=== PATIENT | female | born 1985 | race Hispanic/Latino ===

== ENCOUNTER 2016-06-09 04:31 | Inpatient (IN) | payer OTHER ==
[~2016-06-09] VITALS: Ht 160 cm; Wt 92.1 kg
[~2016-06-09 04:31] MED LIST: MOTRIN 800MG T800 MG PO; PERCOCET 325 MG1 TA2 PO
[2016-06-09 07:46] LABS: ABSOLUTE BASOPHIL COUNT 0 /CUMM (0.0-0.2); ABSOLUTE EOSINOPHIL COUNT 0 /CUMM (0.0-0.7); ABSOLUTE GRANULOCYTE CT 11.1 /CUMM (1.4-6.5); ABSOLUTE LYMPH COUNT 1.2 /CUMM (1.2-3.4); ABSOLUTE MONOCYTE COUNT 0.7 /CUMM (0.10-0.60); BASOPHIL % 0.1 % (0.0-2.0); EOSINOPHIL % 0.1 % (0-5); GRANULOCYTE % 85.5 % (42.2-75.2); HEMATOCRIT 35.4 % (37-47); MEAN CORPUSCULAR HGB 27.5 PG (27.0-31.0); MEAN CORPUSCULAR HGB CONC 33.3 G/DL (33.0-37.0); MEAN CORPUSCULAR VOLUME 82.4 FL (81.0-99.0); MEAN PLATELET VOLUME 10.5 FL (7.4-10.4); PLATELET COUNT 173 /CUMM (130-400); RBC DISTRIBUTION WIDTH 15.5 % (11.5-14.5); RED BLOOD CELL CT 4.29 /CUMM (4.20-5.40); WHITE BLOOD CELL COUNT 12.9 /CUMM (4.8-10.8)
[2016-06-09 08:20] VITALS: BP 118/67
--- NOTE | 2016-06-09 10:34 | History & Physical ---
General Information and HPI MD Statement: I have seen and personally examined ZAYRA UREÑA and documented this H&P. The patient is a 31 year old female at 38 weeks weeks [] weeks and [] days gestation who presented with a chief complaint of []. History of Present Illness: 31-year-old 2 para 1001 presents to childbirth center at 38 weeks gestation complaining of ruptured membranes and labor. Patient I is seen childbirth section tractor to 3 minutes she is given hydration on she is given Brethine contracts well through patient has clearly copious amounts of fluid from the vagina consistent with spontaneous rupture membranes plan is made for section Allergies/Medications Allergies: Coded Allergies: NO KNOWN ALLERGIES (04/29/15) Home Med list OXYCODONE HCL/ACETAMINOPHEN (Percocet 5-325 MG Tablet) 325 MG/5 MG TAB 1 TAB PO Q4P PRN PAIN SCALE 7-8 Yibuprofen (Motrin 800MG Tab) 800 MG TAB 800 MG PO Q6P PRN PAIN SCALE 4-6 Past History reducer History : 3 Para: 0 Last Menstrual Period: 07/26/2014 Past reducer History: none (2TOP) Surgical History Pertinent Surgical History: N Past Family/Social History Psychosocial History Smoking Status: Never Smoked Review of Systems Review of Systems: Negative is stated in the HPI Exam & Diagnostic Data Last 24 Hrs of Vital Signs/I&O Vital Signs Date Time Temp Pulse Resp B/P Pulse O2 O2 Flow FiO2 Ox Delivery Rate 06/09 0820 118/67 Intake & Output 06/09 1600 06/09 0800 06/09 0000 Intake Total Output Total Balance Patient 203 lb Weight Obstetric Exam Wgt Gained During : 12 Pelvimetry: Untested Dilation (cm): 2 Effacement (%): 90 Station: 0 Membranes: SROM Fluid: clear Fundal Height (cm): 38 Multiple Gestation? No Contractions: Every 3 minutes Patient for Induction? No Labs Blood Type & Rh: O+ Antibody Screen: Negative Hct/Hgb & Platelets #1: 39/2:30 Hct/Hgb & Platelets #2: 04/27 36/240 Rubella: Immune VDRL #1: Nonreactive VDRL #2: Nonreactive HbsAg: Nonreactive HIV #1: Negative HIV #2 Negative 1 Hr P Group B Strep: Negative Initial Ultrasound: Normal Anatomy Ultrasound: Normal Genetic Testing: nl Last 24 Hrs of Labs/Nomi: Laboratory Tests 06/09/16 0725: CBC w Diff MAN DIFF ORDERED, RBC 4.29, MCV 82.4, MCH 27.5, RDW 15.5 H, MPV 10.5 H, Gran % 85.5 H, Lymphocytes % 9.0 L, Monocytes % 5.3, Eosinophils % 0.1, Basophils % 0.1, Absolute Granulocytes 11.1 H, Absolute Lymphocytes 1.2, Absolute Monocytes 0.7 H, Absolute Eosinophils 0, Absolute Basophils 0, Platelet Estimate VERIFIED BY SMEAR, Anisocytosis 1+, PUBS MCHC 33.3, Urine Color YEL, Urine Clarity CLEAR, Urine pH 6.5, Ur Specific Curtis 1.015, Urine Protein NEG, Urine Ketones NEG, Urine Nitrite NEG, Urine Bilirubin NEG, Urine Urobilinogen 0.2, Ur Leukocyte Esterase NEG, Ur Microscopic SEDIMENT EXAMINED, Urine RBC 1-3, Ur Epithelial Cells FEW, Urine Hemoglobin TRACE-LYSED, Urine Glucose NEG Microbiology 06/09 08 URINE ROUT: Urine Culture - COLB Assessment/Plan Assessment/Plan: Assessment term previous section ruptured in labor plan antibiotics section As Ranked By This Provider Problem List: 1. Core Measures/Miscellaneous Venous Thromboembolism VTE Risk Factors: / VTE Contraindications: No Contraindications VTE Prophylaxis Ordered Inpt: Mech & Pharm VTE Diagnosis: No Beta Do Is Beta Do a Home Med? No Antibiotics Is Patient on Antibiotics? No
--- NOTE | 2016-06-09 10:39 | Operative Report ---
Operative/Inv Procedure Report Surgery Date: 06/09/16 Name of Procedure: Repeat section via Pfannenstiel skin incision lysis of adhesions Pre-Operative Diagnosis: Previous section rupture membranes labor Post-Operative Diagnosis: Same Estimated Blood Loss: 500 Surgeon/Mortar Man: And Dr. ajit Rios MD,NEYMAR Schuster Anesthesia: block Operative/Procedure Note Note: Procedure note patient was taken the operating room placed on position after adequate skin testing for anesthesia for spinal narcotic adequate for surgery by pinprick the abdomen was prepped and draped so fashion the skin was checked once again found to be adequate for surgery the skin was cut with a knife carried down with second knife to rectus fascia was cut in curvilinear fashion either direction using curved males and Bovie peritoneal cavity was entered high into the abdomen the low blade the Laurie was placed and lower and incision the visceral peritoneum of the uterus was dissected anteriorly to develop a bladder flap throughout on the bladder blade was replaced to protect the bladder in the lower uterine segment the uterus is nicked entered with the back to knife dissected bluntly as well as sharply on since removed from the field the infant was delivered over the abdominal wall . Cord around the body was noted the cord was doubly clamped and cut and the was handed paint coating machine operator GEN followed follow was waiting delivering to aid in resuscitation placenta was delivered manually noted to be intact was wiped clean with 2 wet dry laps to ensure was free of adherent membranes. Intravenous Pitocin and intramyometrial she'll Pitocin and intramuscular Methergine were used for uterine contractility which was apparent uses oversewn running locking suture of 0 was indicated interrupted [id number] after second running lock of 0 hemostasis was apparent the peritoneum was reapproximated after the uterus had been returned to abdominal cavity irrigated copious amounts warm saline until clear the fascia was reapproximated to continue sutures #1 the skin was reapproximated after Bovie coagulation subcutaneous tissue. Chester were applied to skin sterile dressing was applied patient was informed to the status and transferred recovery room awake alert with counts correct
[2016-06-09] MEDS ORDERED: SYNTHROID50 MCG PO (10:41)
[2016-06-10 08:31] LABS: ABSOLUTE BASOPHIL COUNT 0 /CUMM (0.0-0.2); ABSOLUTE EOSINOPHIL COUNT 0 /CUMM (0.0-0.7); ABSOLUTE LYMPH COUNT 1.7 /CUMM (1.2-3.4); ABSOLUTE MONOCYTE COUNT 0.7 /CUMM (0.10-0.60); BASOPHIL % 0.2 % (0.0-2.0); EOSINOPHIL % 0.2 % (0-5); GRANULOCYTE % 74.3 % (42.2-75.2); MEAN CORPUSCULAR HGB 27.6 PG (27.0-31.0); MEAN CORPUSCULAR HGB CONC 33.6 G/DL (33.0-37.0); MEAN CORPUSCULAR VOLUME 82.3 FL (81.0-99.0); MEAN PLATELET VOLUME 10.3 FL (7.4-10.4); PLATELET COUNT 174 /CUMM (130-400); RBC DISTRIBUTION WIDTH 15.4 % (11.5-14.5); WHITE BLOOD CELL COUNT 9.4 /CUMM (4.8-10.8)
[2016-06-10 08:36] LABS: HEMATOCRIT 21.2 % (37-47); RED BLOOD CELL CT 2.58 /CUMM (4.20-5.40)
--- NOTE | 2016-06-10 09:26 | PN- Post Delivery/GYN ---
Subjective Subjective: NO COMPLAINTS Objective Last 24 Hrs of Vital Signs/I&O PER CHART NOT ORTHOSTATIC Physical Exam: VSS ABD SOFT NT LOCHIA MODERATE EXT =+1 EDEMA INCISION CDI Assessment/Plan Assessment/Plan ASSESS S/P C/S ANEMIA 12/13 PLAN REPEAT CBC CONT PPC
[2016-06-10 11:20] LABS: ABSOLUTE BASOPHIL COUNT 0 /CUMM (0.0-0.2); ABSOLUTE EOSINOPHIL COUNT 0 /CUMM (0.0-0.7); ABSOLUTE MONOCYTE COUNT 0.9 /CUMM (0.10-0.60)
[2016-06-10 11:24] LABS: ABSOLUTE GRANULOCYTE CT 7.4 /CUMM (1.4-6.5); ABSOLUTE LYMPH COUNT 1.9 /CUMM (1.2-3.4); BASOPHIL % 0.3 % (0.0-2.0); EOSINOPHIL % 0.2 % (0-5); GRANULOCYTE % 72.1 % (42.2-75.2); HEMATOCRIT 22.3 % (37-47); MEAN CORPUSCULAR HGB 27.6 PG (27.0-31.0); MEAN CORPUSCULAR HGB CONC 34.2 G/DL (33.0-37.0); MEAN CORPUSCULAR VOLUME 80.8 FL (81.0-99.0); MEAN PLATELET VOLUME 10.1 FL (7.4-10.4); PLATELET COUNT 210 /CUMM (130-400); RBC DISTRIBUTION WIDTH 15.4 % (11.5-14.5); RED BLOOD CELL CT 2.75 /CUMM (4.20-5.40); WHITE BLOOD CELL COUNT 10.3 /CUMM (4.8-10.8)
--- NOTE | 2016-06-11 14:42 | PN- Post Delivery/GYN ---
Subjective Subjective: NO COMPLAINTS Objective Last 24 Hrs of Vital Signs/I&O PER CHART Physical Exam: PE PALE HF IN NAD ABD SOFTBNT INSICION CDI EXT -EDEMA-HOMANS Assessment/Plan Assessment/Plan ASSESS S/P C/S ANEMIA
[2016-06-12] MEDS ORDERED: IBUPROFEN800 M1 PO (09:42)
[2016-06-12] MEDS ORDERED: PERCOCET 5-3251 EACH PO (09:42)
--- NOTE | 2016-06-20 13:12 | Surgical Discharge Summary ---
Visit Information Visit Dates Admission Date: 06/09/16 Discharge Date: 06/12/16 History of Present Illness Chief Complaint: Here to have a baby Surgical History Pertinent Surgical History: N Psychosocial History What is Your Primary Language? Martiniquais Review of Systems: Negative review of systems as stated in the [facility] Hospital Course Course Attending Physician: NEYMAR KELLEY MD Primary Care Physician: AUREA YUAN MD Hospital Course: Patient admitted for repeat section she did well tolerating clear liquid diet first postoperative day urinating without these were [place] oral pain medication her lochia was minimal she bonded well with her infant she remained afebrile the patient was discharged home on third postoperative day with following physical exam she's a pleasant female HEENT anicteric lungs clear heart S1 and S2 abdomen soft incision clean dry and intact with kunal in place fundus firm nontender extremities negative edema negative Homans . Allergies: Coded Allergies: NO KNOWN ALLERGIES (06/09/16) Disposition Summary Disposition Principal Diagnosis: Status post repeat section Additional Diagnosis: Anemia Discharge Disposition: home or self care Discharge Instructions General Discharge Information Code Status: Full Code Patient's Diet: Regular Patient's Activity: Pelvic rest no heavy lifting greater than 15 pounds no driving for 2 weeks Follow-Up Instructions/Appts: My office 2 weeks kunal removed by return nurses Medications at Discharge Discharge Medications: Stop taking the following medications: Yibuprofen (Motrin 800MG Tab) 800 MG TAB ORAL EVERY SIX HOURS NEEDED as needed for PAIN SCALE 4-6 Qty = 60 Continue taking these medications: OXYCODONE HCL/ACETAMINOPHEN (Percocet 5-325 MG Tablet) 325 MG/5 MG TAB 1 Tablet ORAL EVERY 4 HOURS NEEDED as needed for PAIN SCALE 7-8 Qty = 60 Comments: Last Taken: 05/02/15 Time: 0600 Levothyroxine Sodium (Synthroid) 50 MCG TABLET 1 Tablet ORAL DAILY Qty = 30 Start taking the following new medications: Ibuprofen (Ibuprofen) 800 MG TABLET 800 Milligram ORAL EVERY SIX HOURS NEEDED as needed for UTERINE CRAMPING Qty = 30 No Refills Comments: Last Taken:06/12/16 Time:0515 Oxycodone HCl/Acetaminophen (Percocet 5-325 MG Tablet) 5 MG-325 MG TABLET 1 Tablet ORAL EVERY 4 HOURS NEEDED as needed for PAIN SCALE 4-6 (MODERATE ) Qty = 30 No Refills Comments: Last Taken:06/12/16 Time:0515
== END 2016-06-12 11:15 | DRG 766 ==
LOC: CBCO 04:31 → GNO 08:16
PROVIDERS: ADMIT Specialist
PROC: 10D00Z1 Extraction of Products of Conception, Low, Open Approach (ICD-10-PCS; principal; 2016-06-09)
DX: O34.211 Maternal care for low transverse scar from previous cesarean delivery (principal); N85.8 Other specified noninflammatory disorders of uterus; O69.82X0 Labor and delivery complicated by other cord entanglement, without compression, not applicable or unspecified; Z3A.38 38 weeks gestation of pregnancy; Z37.0 Single live birth
CPT/HCPCS: GNOP; 81001; 87086; 96360; 96372; G0463; J0131; J0690; J1050; J1885; J2210; J3105; J7120